=== PATIENT | male | born 1960 | race Caucasian/White ===

== ENCOUNTER 2021-10-03 08:04 | Outpatient (CLI) | payer MEDICARE | END 2021-10-03 08:05 | disposition home or self-care (01) | LOC: CSHLAB 08:04 | PROVIDERS: ATTEND Internal Medicine Critical Care Medicine | DX: Z20.822 Contact with and (suspected) exposure to COVID-19 (principal) | CPT/HCPCS: 87811 ==

== ENCOUNTER 2021-10-08 14:14 | Outpatient (CLI) | payer MEDICARE | END 2021-10-08 14:15 | disposition home or self-care (01) | LOC: CSHCP 14:14 | PROVIDERS: ATTEND Internal Medicine Critical Care Medicine | DX: J45.40 Moderate persistent asthma, uncomplicated (principal); J98.4 Other disorders of lung | CPT/HCPCS: 94060; 94726; 94729; 94760 ==

== ENCOUNTER 2022-01-26 21:28 | Observation (INO) | payer MEDICARE ==
[~2022-01-26 21:28] MED LIST: Iopamidol 300 61% 100 ML VIAL FS ONE
[2022-01-26 22:38] LABS: Actual Bicarbonate (HCO3v) 22 mEq/L (22-28); Base Excess -2.2 mEq/L (-2.0 to +3.0); Calcium, Ionized (venous) 1.07 mmol/L (1.16-1.32); Chloride (VBG) 100 mmol/L (98-106); Critical Notified By: CO.JL; Hemoglobin (Hb) 14.8 g/dL (13.1-17.2); Potassium (VBG) 3.82 mmol/L (3.70-5.30); Puncture Site Other Site; RapidComm Collect By LAB; Sodium 134.3 mmol/L (133-146)
[2022-01-26 22:41] LABS: #Basophils 0.2 10x3/uL (0.0-0.2); #Eosinphils 1.4 10x3/uL (0.0-0.5); #Monocytes 0.4 10x3/uL (0.0-1.1); #Neutrophils 6.2 10x3/uL (1.5-8.4); %Basophils 1.9 % (0.0-2.0); %Eosinophils 13.6 % (0.0-6.0); %Monocytes 3.6 % (0.0-10.0); %Neutrophils 59.4 % (40.0-75.0); Hemoglobin 13.6 g/dL (13.5-17.5); Mean Corpuscular HGB CONC 32.3 g/dL (32.0-36.0); Mean Corpuscular Volume 80.3 fl (81.2-95.1); Mean Platelet Volume 11.2 fl (7.4-10.4); Platelet Count 199 10x3/uL (150-450); RBC Distribution Width 14.5 % (11.5-14.5); Red Blood Cell (RBC) Count 5.24 10x6/uL (4.32-5.72); White Blood Cell (WBC) Count 10.4 10x3/uL (3.5-10.5)
[2022-01-26 22:56] LABS: ALT (SGPT) 14 U/L (8-55); AST (SGOT) 19 U/L (5-34); Albumin 4.1 g/dL (3.4-4.8); Alkaline Phosphatase 90 U/L (40-110); Anion Gap 17 mmol/L (10-20); BUN (Urea Nitrogen) 12 mg/dL (8.4-25.7); Bilirubin, Total 0.3 mg/dL (0.2-1.2); Calc. Creatinine Clearance 0 mL/min (70-130); Calcium 9.1 mg/dL (7.8-10.44); Carbon Dioxide 20 mmol/L (23-31); Chloride 101 mmol/L (98-107); Estimated GFR 82; Globulin 3.5 g/dL (2.4-3.5); Glucose 309 mg/dL (80-115); Potassium 4.2 mmol/L (3.5-5.1); Protein, Total 7.6 g/dL (5.8-8.1); Sodium 134 mmol/L (136-145)
[2022-01-27] MEDS ORDERED: Acetaminophen 325 MG TAB PO PRN (00:46)
[2022-01-27] MEDS ORDERED: Senokot S 8.6-50 MG TAB PO PRN (00:46)
[2022-01-27] MEDS ORDERED: Dextrose 5% in Water 1,000 ML IV PRN (00:46)
[2022-01-27] MEDS ORDERED: Calcium Carbonate 500 MG ChewTAB PO PRN (00:46)
[2022-01-27] MEDS ORDERED: Guaifenesin DM 100-10/5 ML UDCUP PO PRN (00:46)
[2022-01-27] MEDS ORDERED: Ondansetron PF 4 MG/2 ML Vial IVP PRN (00:46)
[2022-01-27] MEDS ORDERED: HYDROcodone/Acetaminophen 5/325 mg Tablet PO PRN (00:46)
[2022-01-27] MEDS ORDERED: Dextrose 50% Abboject 50 ML SYRINGE SLOW IVP PRN (00:46)
[2022-01-27] MEDS ORDERED: HumaLOG 300 UNITS/3 ML VIAL SC PRN ×3 (00:47→07:00)
[2022-01-27] MEDS ORDERED: Apixaban 5 MG TAB PO SCH ×2 (01:00)
[2022-01-27 01:29] VITALS: BMI 26.3
[2022-01-27] MEDS: methylPREDNISolone Sod Succ 40 MG VIAL IVP SCH ×2 (05:09→17:21)
[2022-01-27] MEDS ORDERED: Mometasone 200 MCG/Formoterol 5 MCG 120 PUFF INHALER INH SCH (06:30)
[2022-01-27] MEDS: HumaLOG 300 UNITS/3 ML VIAL SC PRN ×4 (06:52→21:56)
[2022-01-27] MEDS: Benzonatate 100 MG CAP PO SCH ×3 (08:35→21:54)
[2022-01-27] MEDS: Aspirin 81 mg Enteric Coated Tablet PO SCH (08:36)
[2022-01-27] MEDS: Citalopram 20 MG TAB PO SCH (08:36)
[2022-01-27] MEDS: Amoxicillin/Potassium Clav 875 MG TAB PO SCH ×2 (08:36→21:55)
[2022-01-27] MEDS: guaiFENesin ER 600 MG TAB PO SCH ×2 (08:37→21:54)
[2022-01-27] MEDS: Losartan 25 MG TAB PO SCH (08:37)
[2022-01-27] MEDS: Apixaban 5 MG TAB PO SCH ×2 (08:37→21:54)
[2022-01-27] MEDS: Lantus 1000 UNITS/10 ML VIAL SC SCH (08:38)
[2022-01-27] MEDS: Gabapentin 400 MG CAP PO SCH ×3 (08:40→21:53)
[2022-01-27] MEDS: Mometasone 100 MCG/PUFF (1 INHALER) INH SCH ×2 (09:15→19:23)
[2022-01-27] MEDS ORDERED: Lantus 1000 UNITS/10 ML VIAL SC SCH (21:00)
[2022-01-27] MEDS ORDERED: Mirtazapine 15 MG Soltab PO SCH (21:00)
[2022-01-28] MEDS: methylPREDNISolone Sod Succ 40 MG VIAL IVP SCH (05:40)
[2022-01-28] MEDS: HumaLOG 300 UNITS/3 ML VIAL SC PRN (05:41)
[2022-01-28] MEDS: Mometasone 100 MCG/PUFF (1 INHALER) INH SCH (07:35)
[2022-01-28] MEDS: Losartan 25 MG TAB PO SCH (08:54)
[2022-01-28] MEDS: Benzonatate 100 MG CAP PO SCH ×2 (08:54→15:49)
[2022-01-28] MEDS: Gabapentin 400 MG CAP PO SCH ×2 (08:55→15:48)
[2022-01-28] MEDS: Aspirin 81 mg Enteric Coated Tablet PO SCH (08:55)
[2022-01-28] MEDS: Apixaban 5 MG TAB PO SCH (08:55)
[2022-01-28] MEDS: Amoxicillin/Potassium Clav 875 MG TAB PO SCH (08:56)
[2022-01-28] MEDS: Citalopram 20 MG TAB PO SCH (08:56)
[2022-01-28] MEDS: guaiFENesin ER 600 MG TAB PO SCH (08:57)
[2022-01-28] MEDS: Lantus 1000 UNITS/10 ML VIAL SC SCH (09:12)
[2022-01-28] MEDS ORDERED: HumaLOG 300 UNITS/3 ML VIAL SC PRN ×2 (11:38)
[2022-01-28 16:50] VITALS: BP 114/66; TEMP 98.1
== END 2022-01-28 17:45 | disposition home or self-care (01) ==
LOC: CSHERS 21:28 → CSHTELE 01-27 01:04
PROVIDERS: ADMIT Student in an Organized Health Care Education/Training Program; ATTEND Internal Medicine
DX: J44.1 Chronic obstructive pulmonary disease with (acute) exacerbation (principal); J96.01 Acute respiratory failure with hypoxia; I11.0 Hypertensive heart disease with heart failure; I50.30 Unspecified diastolic (congestive) heart failure; I25.10 Atherosclerotic heart disease of native coronary artery without angina pectoris; K21.9 Gastro-esophageal reflux disease without esophagitis; E78.5 Hyperlipidemia, unspecified; K22.70 Barrett's esophagus without dysplasia; I26.99 Other pulmonary embolism without acute cor pulmonale; E11.40 Type 2 diabetes mellitus with diabetic neuropathy, unspecified; Z20.822 Contact with and (suspected) exposure to COVID-19; Z88.2 Allergy status to sulfonamides; Z79.4 Long term (current) use of insulin; Z79.82 Long term (current) use of aspirin; Z79.899 Other long term (current) drug therapy; Z77.22 Contact with and (suspected) exposure to environmental tobacco smoke (acute) (chronic); Z90.49 Acquired absence of other specified parts of digestive tract; Z90.09 Acquired absence of other part of head and neck; Z98.890 Other specified postprocedural states
CPT/HCPCS: 71270; 80053; 82805; 82962 ×2; 84484; 85025; 87040; 93005; 94640 ×6; 94664; 94760 ×3; 96374; 96376 ×2; 99285; G0378 ×3; U0003; U0005; 36415; 36416; J1815; J2920; J7620; Q9967

== ENCOUNTER 2022-03-03 23:41 | Emergency (ER) | payer MEDICARE ==
[2022-03-04] MEDS ORDERED: methylPREDNISolone Sod Succ/PF 125 MG/2 ML VIAL ONE (00:26)
[2022-03-04 00:35] LABS: #Basophils 0.1 10x3/uL (0.0-0.2); #Eosinphils 0.7 10x3/uL (0.0-0.5); #Monocytes 0.6 10x3/uL (0.0-1.1); #Neutrophils 4.8 10x3/uL (1.5-8.4); %Basophils 1.5 % (0.0-2.0); %Eosinophils 9.1 % (0.0-6.0); %Lymphocytes 20.7 % (18.0-47.0); %Neutrophils 61.2 % (40.0-75.0); Hemoglobin 13.5 g/dL (13.5-17.5); Mean Corpuscular HGB CONC 32.2 g/dL (32.0-36.0); Mean Corpuscular Hemoglobin 25.4 pg (27.0-33.0); Mean Corpuscular Volume 78.9 fl (81.2-95.1); Mean Platelet Volume 11.1 fl (7.4-10.4); Platelet Count 192 10x3/uL (150-450); RBC Distribution Width 14.8 % (11.5-14.5); Red Blood Cell (RBC) Count 5.31 10x6/uL (4.32-5.72); White Blood Cell (WBC) Count 7.9 10x3/uL (3.5-10.5)
[2022-03-04 00:37] LABS: ALT (SGPT) 16 U/L (8-55); AST (SGOT) 12 U/L (5-34); Alkaline Phosphatase 77 U/L (40-110); Anion Gap 12 mmol/L (10-20); BUN (Urea Nitrogen) 13 mg/dL (8.4-25.7); Bilirubin, Total 0.4 mg/dL (0.2-1.2); Calc. Creatinine Clearance 0 mL/min (70-130); Calcium 9.5 mg/dL (7.8-10.44); Carbon Dioxide 26 mmol/L (23-31); Chloride 100 mmol/L (98-107); Estimated GFR 79; Potassium 3.9 mmol/L (3.5-5.1); Sodium 134 mmol/L (136-145)
[2022-03-04 00:43] LABS: Glucose 400 mg/dL (80-115)
== END 2022-03-04 03:02 | disposition home or self-care (01) ==
LOC: CSHERS 23:41
DX: J44.9 Chronic obstructive pulmonary disease, unspecified (principal); I10 Essential (primary) hypertension; I25.10 Atherosclerotic heart disease of native coronary artery without angina pectoris; E11.9 Type 2 diabetes mellitus without complications; E78.5 Hyperlipidemia, unspecified
CPT/HCPCS: 36415; 71045; 80053; 85025; 93005; 96374; J2930; J7620